=== PATIENT | male | born 1945 | race Caucasian/White ===

== ENCOUNTER 2017-08-04 15:37 | Day surgery (SDC) | payer MEDICARE ==
[2017-08-04] VITALS (11 sets, daily range): BP systolic 127–159; BP diastolic 74–85; PULSE 69–76; RESP 16–23; Ht 172.7 cm; Wt 89.6 kg
[~2017-08-04] VITALS: Ht 172.7 cm; Wt 89.6 kg
[2017-08-04] MEDS ORDERED: POLYMYXIN/BACITRACIN 1L IRRIG ONE (17:43)
--- NOTE | 2017-08-04 17:48 | HPN ---
Date/Time of Note Date/Time of Note DATE: 08/04/17 TIME: 17:48 Interval H&P Admission Note Pt. seen H&P reviewed: No system changes GÉNESIS LOPEZ Aug 04, 2017 17:48
[2017-08-04] MEDS ORDERED: BUPIVACAINE 0.5% (SDV) 30 ML INJ ONE (18:03)
[2017-08-04] MEDS ORDERED: LIDOCAINE 1% (MPF) 30 ML INJ ONE (18:03)
[2017-08-04] MEDS ORDERED: PROPOFOL 20 ML ONE (18:09)
[2017-08-04] MEDS ORDERED: LIDOCAINE 1% (MDV) 20 ML INJ ONE (18:09)
[2017-08-04] MEDS ORDERED: CEFAZOLIN 1 GM INJ ONE (18:19)
[2017-08-04] MEDS ORDERED: ONDANSETRON 4 MG INJ ONE (18:23)
[2017-08-04] MEDS ORDERED: DEXAMETHASONE 4 MG/ML 1 ML INJ ONE (18:23)
[2017-08-04] MEDS ORDERED: ACETAMINOPHEN 1000MG/100ML IV 100 ML ONE (18:46)
[2017-08-04] MEDS ORDERED: MEPERIDINE 25 MG INJ IV PRN (19:00)
[2017-08-04] MEDS ORDERED: LABETALOL HCL 20MG INJ IV PRN (19:00)
[2017-08-04] MEDS ORDERED: hydrALAzine 20 MG INJ IV PRN (19:00)
[2017-08-04] MEDS ORDERED: KETOROLAC 30 MG INJ IV PRN (19:00)
[2017-08-04] MEDS ORDERED: METOCLOPRAMIDE 10 MG INJ IV PRN (19:00)
[2017-08-04] MEDS ORDERED: ONDANSETRON 4 MG INJ IV PRN (19:00)
--- NOTE | 2017-08-04 19:12 | OPPN ---
Date/Time of Note Date/Time of Note DATE: 08/04/17 TIME: 19:07 Operative Report Preoperative Diagnosis left carpal tunnel syndrome, left cubital tunnel syndrome Postoperative Diagnosis left carpal tunnel syndrome, left cubital tunnel syndrome Operation/Procedure Performed left carpal tunnel release, left ulnar nerve decompression at the elbow Surgeon see signature line assistant brand manager none Anesthesia: general Estimated blood loss: 0 - 10 ml's Transfusion Required none Specimen none Grafts/Implants none Complications none GÉNESIS LOPEZ Aug 04, 2017 19:12
--- NOTE | 2017-08-04 19:12 | OPPN ---
Date/Time of Note Date/Time of Note DATE: 08/04/17 TIME: 19:07 Operative Report Preoperative Diagnosis left carpal tunnel syndrome, left cubital tunnel syndrome Postoperative Diagnosis left carpal tunnel syndrome, left cubital tunnel syndrome Operation/Procedure Performed left carpal tunnel release, left ulnar nerve decompression at the elbow Surgeon see signature line [employer] assistant manager none Anesthesia: general Estimated blood loss: 0 - 10 ml's Transfusion Required none Specimen none Grafts/Implants none Complications none GÉNESIS LOPEZ Aug 04, 2017 19:12
--- NOTE | 2017-08-04 19:12 | OPPN ---
Date/Time of Note Date/Time of Note DATE: 08/04/17 TIME: 19:07 Operative Report Preoperative Diagnosis left carpal tunnel syndrome, left cubital tunnel syndrome Postoperative Diagnosis left carpal tunnel syndrome, left cubital tunnel syndrome Operation/Procedure Performed left carpal tunnel release, left ulnar nerve decompression at the elbow Surgeon see signature line assistant professor of religion none Anesthesia: general Estimated blood loss: 0 - 10 ml's Transfusion Required none Specimen none Grafts/Implants none Complications none GÉNESIS LOPEZ Aug 04, 2017 19:12
[2017-08-04] MEDS ORDERED: LIDOCAINE 1% (MPF) 30 ML INJ INJ ONE (19:13)
[2017-08-04] MEDS ORDERED: BUPIVACAINE 0.5% (MPF) 30 ML INJ EPI ONE (19:14)
--- NOTE | 2017-08-04 21:07 | OPR ---
DATE OF OPERATION: SURGEON: Newton Nuno MD ANESTHESIA: General plus local. PREOPERATIVE DIAGNOSES: 1. Left carpal tunnel syndrome. 2. Left cubital tunnel syndrome. POSTOPERATIVE DIAGNOSES: 1. Left carpal tunnel syndrome. 2. Left cubital tunnel syndrome. PROCEDURE: 1. Left carpal tunnel release, open. 2. Left ulnar nerve decompression at the elbow. OPERATIVE FINDINGS: Compression of the median nerve at the carpal tunnel and compression of the ulnar nerve at the elbow deep to Gibbons's ligament and the FCU fascia. INDICATION FOR PROCEDURE: A 54-year-old male with longstanding left carpal tunnel and cubital tunnel symptoms. He failed conservative management and elected to proceed with surgical intervention and understood risks and benefits. DESCRIPTION OF PROCEDURE: The patient was seen in the preoperative area and all further questions were answered. Again, he gave informed consent and understood risks and benefits. He was taken to the operative suite and placed in supine position. He was placed under general anesthesia and tourniquet placed on left upper extremity. Left upper extremity was prepped with ChloraPrep stick and draped in the usual sterile fashion, Ancef 2 g IV given, and Esmarch bandage was used to exsanguinate the extremity and tourniquet inflated to 250 mmHg. Attention was 1st turned to the carpal tunnel release and a 2 cm incision at the base of the palm was utilized with sharp dissection carried down through skin and subcutaneous tissue. The palmar aponeurosis was identified and was incised along its ulnar border. Retractors were deepened and the transverse carpal ligament was identified and was incised along its ulnar border approximately 3 mm radial to the hook of the hamate. Retractor placed distally and the distal extent of the transverse carpal ligament was divided under direct visualization. There was significant compression at the distal aspect of the transverse carpal ligament. Attention turned proximally and the proximal aspect of the transverse carpal was divided. Wound was copiously irrigated. Skin closed with 4-0 nylon. Xeroform placed over the wound followed by sterile gauze and Webril. Attention then turned to the left elbow and a curvilinear incision at the posterior aspect of the medial epicondyle was utilized with sharp dissection carried down through skin and subcutaneous tissue. Scissor dissection brought us down to the medial epicondyle and Gibbons's' ligament, which was incised along the course of the ulnar nerve. The nerve was decompressed deep to Gibbons's ligament and dissection was carried distally following the ulnar nerve, and it was decompressed at its entrance into the FCU fascia both on the superficial and deep layers. There was significant compression of the nerve at this level. Dissection carried out more distally and the FCU fascia was incised and any crossing fibers of the fascia were divided. The nerve was decompressed distally and attention turned proximally and the intermuscular septum was divided proximally as well as the triceps fascia. The wound was copiously irrigated and the elbow was ranged showing stable ulnar nerve. Skin closed with 4-0 nylon followed by Xeroform, sterile gauze and Webril. A long arm splint was placed with the elbow at 60 degrees of flexion. Tourniquet was deflated after 35 minutes, and the patient was awakened from anesthesia. He was taken to the postoperative suite in stable condition. He tolerated the procedure well without complication. SPECIMENS: None. ESTIMATED BLOOD LOSS: 5 cc. COUNTS: Sponge, needle counts correct. TOURNIQUET TIME: Thirty five minutes. CONDITION ON DISCHARGE: Stable. Dictated By: Newton Nuno MD /[email or web address] /Document#: [id number] RANJITH
== END 2017-08-04 20:12 | disposition home or self-care (01) ==
LOC: SDS 15:37
PROVIDERS: ATTEND Orthopaedic Surgery Hand Surgery
DX: G56.02 Carpal tunnel syndrome, left upper limb (principal); G56.22 Lesion of ulnar nerve, left upper limb; I10 Essential (primary) hypertension
CPT/HCPCS: 64718; 64721; J0131; J0690; J1100; J2405